=== PATIENT | female | born 1985 | race Caucasian/White ===

== ENCOUNTER 2018-01-15 13:00 | Inpatient (IN) | payer BC, OTHER ==
[2018-01-15] VITALS (28 sets, daily range): BP systolic 95–155; BP diastolic 52–87
[~2018-01-15] VITALS: Ht 165.1 cm; Wt 96.4 kg
[~2018-01-15 13:00] MED LIST: DCS100C PO; DOCO200C4 PO; HYDR-3720 PO; Ibuprofen PO
[2018-01-15] MEDS ORDERED: D5 LR IV SOLUTION 1,000 ML IV SCH (14:12)
[2018-01-15] MEDS ORDERED: AMPICILLIN INJECTION 2,000 MG in NS (IVPB) 50 ML IV SCH (14:12)
[2018-01-15] MEDS ORDERED: LACTATED RINGERS 1,000 ML IV ONE ×2 (14:28→16:35)
[2018-01-15 14:58] LABS: BASOPHILS % (AUTO) 0 % (0-10); EOSINOPHILS # (AUTO) 0.1 10^3/uL (0.0-0.3); EOSINOPHILS % (AUTO) 1 % (0-10); HEMATOCRIT 40 % (35-52); LYMPHOCYTES # (AUTO) 1.1 X 10^3 (1.0-4.0); LYMPHOCYTES % (AUTO) 13 % (12-44); MEAN CORPUSCULAR HGB CONC 35 G/DL (32-36); MEAN CORPUSCULAR VOLUME 92 FL (80-99); MEAN PLATELET VOLUME 9.8 FL (7.4-10.4); MONOCYTES # (AUTO) 0.4 X 10^3 (0.0-1.0); MONOCYTES % (AUTO) 4 % (0-12); NEUTROPHILS # (AUTO) 7.3 X 10^3 (1.8-7.8); NEUTROPHILS % (AUTO) 83 % (42-75); PLATELET COUNT 223 10^3/uL (130-400); RED BLOOD COUNT 4.31 10^6/uL (4.35-5.85); RED CELL DISTRIBUTION WIDTH 14.2 % (10.0-14.5); WHITE BLOOD COUNT 8.9 10^3/uL (4.3-11.0)
[2018-01-15 15:01] LABS: MEAN CORPUSCULAR HEMOGLOBIN 32 PG (25-34)
[2018-01-15] MEDS ORDERED: SUFENTA 0.6MCG/ML BUPIVA 0.125 100 ML ONE (15:20)
[2018-01-15] MEDS ORDERED: LIDOCAINE PF 2% 5 ML (XYLOCAINE) VIAL ONE (16:11)
[2018-01-15] MEDS ORDERED: fentaNYL INJECTION 100 MCG/2 ML AMP ONE (16:11)
[2018-01-15] MEDS ORDERED: BUPIVACAINE 0.25% 30 ML (SENSORCAINE) VIAL ONE (16:11)
[2018-01-15] MEDS ORDERED: CATHETER FLUSH 10 ML SYR IV PRN (16:45)
[2018-01-15] MEDS ORDERED: ONDANSETRON 4 MG/2 ML (SDV) Z0FRAN IV PRN (16:45)
[2018-01-15] MEDS ORDERED: EPIDURAL (SUFENTA 0.6MCG/ML BUPIVA 0.125%) 100 ML BAG EPI SCH ×2 (16:45→17:15)
[2018-01-15] MEDS ORDERED: NALOXONE 0.4 MG/ML 1 ML (NARCAN) VIAL IV PRN (16:45)
[2018-01-15] MEDS ORDERED: diphenhydrAMINE 50 MG/ML INJ (BENADRYL) IV PRN (16:45)
[2018-01-15] MEDS ORDERED: PHENYLEPHRINE 100 MCG/ML 10 ML (ANESTHESIA) SYR ONE (16:46)
[2018-01-15] MEDS ORDERED: OXYTOCIN/NORMAL SALINE 500 ML IV SCH (17:28)
--- NOTE | 2018-01-15 17:28 | History & Physical ---
History and Physical Date Seen by Provider: Jan 15, 2018 Time Seen by Provider: 17:25 This patient is a 31-year-old white female who presented with complaint of contractions. She dilated about 4 cm on presentation. She is to do a sharp her due date 39+ weeks gestation. She's had no problems with this . GBS culture was positive at 35 weeks gestation. She was started on ampicillin when it was determined that she was in labor. Patient denies ruptured membranes or bleeding. Allergies sulfa Medications are vitamins Medical social and surgical histories are per the antepartum record HEENT exam is normal Neck supple no lymphadenopathy or thyromegaly Abdomen is gravid soft nontender nondistended Initial examination. No Homans sign. Pelvic exam is pending monitor shows normal heart rate pattern although she has had some decelerations in response to lower blood pressure after her epidural. That is been managed with vasopressors and fluid. Baby has responded appropriately and has remained stable and reassuring. Laboratory Tests 01/15/18 14:30 Assessment and plan term at 39+ weeks gestation in spontaneous labor. Plan is for expectant management would likely vaginal delivery this evening Allergies and Home Medications Allergies Coded Allergies: Sulfa (Sulfonamide Antibiotics) (Verified Allergy, Unknown, hives, 05/20/14 ) Home Medications Docosahexanoic Acid 200 Mg Capsule, 200 MG PO lizzette, (Reported) Docusate Sodium 100 Mg Capsule, 1 CAP PO BID Prescribed by: LEAH GATICA on 05/22/14 0750 Hydrocodone Bit/Acetaminophen 1 Each Tablet, 1-2 TAB PO Q3H PRN for PAIN Prescribed by: LEAH GATICA on 05/22/14 0750 [Ibuprofen] 800 MG TAB, 800 MG PO Q6H Prescribed by: LEAH GATICA on 05/22/14 0750 Patient Home Medication List Home Medication List Reviewed: Yes Clinical Quality Measures DVT/VTE Risk/Contraindication: Risk Factor Score Per Nursin RFS Level Per Nursing on Admit: 1=Low/No VTE PPX LEAH KUMAR MD Jan 15, 2018 5:28 pm
[2018-01-15] MEDS ORDERED: TETANUS,DIPTH,PERTUSS P/F (BOOSTRIX) 0.5 ML VIAL IM ONE (17:30)
[2018-01-15] MEDS ORDERED: MEASLES,MUMPS,RUBELLA 1 EA INJ SC ONE (17:30)
[2018-01-15] MEDS ORDERED: BENZOCAINE/MENTHOL (DERMOPLAST) 56 ML CAN TP PRN (17:30)
[2018-01-15] MEDS ORDERED: KETOROLAC 30 MG/ML VIAL IV SCH (17:30)
[2018-01-15] MEDS ORDERED: LIDOCAINE/EPI 2% 1:200,00 (XYLOCAINE) 10 ML VIAL ONE (18:11)
[2018-01-15] MEDS ORDERED: AMPICILLIN 1000 MG INJECTION (IV/IM) ONE (18:18)
[2018-01-15] MEDS: AMPICILLIN INJECTION 1,000 MG in NS (IVPB) 50 ML IV SCH ×2 (18:19→22:15)
[2018-01-15] MEDS ORDERED: CATHETER FLUSH 10 ML SYR IV SCH (22:00)
[2018-01-15] MEDS: DOCUSATE SODIUM 100 MG (COLACE) CAP PO SCH (22:21)
--- NOTE | 2018-01-16 01:25 | OPERATIVE REPORT ---
DATE OF SERVICE: 01/15/2018 DELIVERY NOTE The patient delivered by term spontaneous vaginal delivery a viable male with Apgars of 8 and 9 at 1 and 5 minutes respectively, weight of 8 pounds 4 ounces, time of 1829 and a cord blood gas that is pending. The infant delivered over midline episiotomy that was performed per the patient's request when she had pushed the baby down on the perineum and there was woefully inadequate space for the baby to deliver. The episiotomy was performed. The patient delivered with the next 2 pushes. The infant was bulb suctioned on delivery of the head and again on completion of delivery. The umbilical cord was doubly clamped, mother cut the cord, and the baby was passed to the owner [employer] in attendance for delivery, which was Dr. Joshi who had graciously attended the delivery secondary to the thick meconium that was noted on amniotomy. The had spontaneous cry, moved all extremities, had excellent tone and reflexes and was quickly pink. The infant was taken to the warmer. The placenta delivered spontaneously Padilla. It was a battledore placenta with a 3-vessel cord. The cervix, vagina, rectum and perineum were examined and found intact, except for the midline episiotomy, which was repaired with a single suture of 3-0 Vicryl Rapide in the usual manner without difficulty. The uterus contracted nicely in response to the ecbolic effect of Pitocin. Estimated blood loss was around 200 mL. The sponge and needle counts were correct on completion of delivery and repair. The patient tolerated the delivery and the repair well and remained in the LDR. The baby remained with the mom. Job ID: [id number] DocumentID: [id number] Dictated Date: 01/15/2018 18:49:47 Access Services Representative Date: 01/16/2018 01:25:02 Dictated By: LEAH KUMAR MD MTDD
[2018-01-16] MEDS ORDERED: IBUPROFEN 800 MG (MOTRIN) TAB PO ONE (02:26)
[2018-01-16 02:30] VITALS: BP 128/80
[2018-01-16 05:45] VITALS: BP 124/79
[2018-01-16] MEDS: oxyCODONE/APAP 5/325MG (PERCOCET 5) TABLET PO PRN ×2 (05:48→14:07)
--- NOTE | 2018-01-16 07:19 | Progress Note-Standard ---
Standard Progress Note Progress Notes/Assess & Plan Date Seen by Provider: Jan 16, 2018 Time Seen by Provider: 07:18 Progress/Assessment & Plan This patient is without complaint. She is ambulating, voiding, tolerating by mouth, has good pain control. Vital Signs Date Time Temp Pulse Resp B/P (MAP) Pulse Ox O2 Delivery O2 Flow Rate FiO2 01/16/18 05:45 97.6 77 18 124/79 (94) 98 Room Air 01/16/18 02:30 98.0 89 18 128/80 (96) 01/15/18 22:00 98.0 110 18 112/72 (85) 01/15/18 19:49 103 18 121/67 (85) Room Air 01/15/18 19:45 113 18 120/65 (83) Room Air 01/15/18 19:41 107 18 123/67 (85) Room Air 01/15/18 19:37 109 18 127/70 (89) Room Air 01/15/18 18:45 105 18 127/63 (84) Room Air 01/15/18 18:40 98.0 110 20 135/64 (87) Room Air 01/15/18 18:25 105 20 141/65 (90) Room Air 01/15/18 18:10 88 20 139/72 (94) 98 Room Air 01/15/18 17:55 110 20 130/80 (97) 96 Room Air 01/15/18 17:40 106 18 130/74 (92) 98 Room Air 01/15/18 17:27 97.6 89 18 117/70 (86) 100 Room Air 01/15/18 17:22 93 18 115/71 (86) 100 Room Air 01/15/18 17:15 98 18 99/54 (69) 100 Room Air 01/15/18 16:53 98 16 102/57 (72) 100 Room Air 01/15/18 16:50 78 16 103/60 (74) 100 Room Air 01/15/18 16:46 98 16 98/57 (71) 100 Room Air 01/15/18 16:42 99 18 97/54 (68) 99 Room Air 01/15/18 16:40 86 18 106/68 (81) 99 Room Air 01/15/18 16:38 127 18 100/58 (72) 99 Room Air 6/5/18 16:31 127 18 95/52 (66) 99 Room Air 01/15/18 16:28 109 18 138/85 (102) 99 Room Air 01/15/18 16:23 106 20 155/81 (105) 99 Room Air 01/15/18 16:17 114 20 143/81 (101) 98 Room Air 01/15/18 16:00 95 20 126/76 (93) Room Air 01/15/18 15:45 95 20 129/81 (97) Room Air 01/15/18 15:30 88 20 124/80 (95) Room Air 01/15/18 13:30 98.2 83 20 135/87 (103) Room Air I & O 01/16/18 07:00 Intake Total 560 ml Balance 560 ml Vital signs are stable. Patient is afebrile. Fundus is firm below the umbilicus and nontender. History of gynecologic problems. Homans sign. Assessment and plan post day number 1 status post spontaneous vaginal delivery doing well. Plan is for routine pelvis. Very likely discharge home tomorrow Final Diagnosis LEAH MUJICA MD Jan 16, 2018 7:19 am
[2018-01-16] MEDS ORDERED: OXYC-471 PO (07:21)
[2018-01-16] MEDS ORDERED: IBUP-1780 PO (07:21)
[2018-01-16] MEDS ORDERED: DOCU100C37 PO (07:21)
--- NOTE | 2018-01-16 07:22 | Discharge Instructions ---
Discharge Instructions Discharge Medications New, Converted or Re-Newed RX: RX on Chart Patient Instructions Patient Instructions: As directed Return to The Hospital For: As directed Activity & Diet Discharge Diet: No Restrictions Activity as Tolerated: No Orders-Post D/C & Referrals Follow Up Appt: Call to make follow up appt. for patient in 4 weeks. Activity Per routine post vaginal delivery instructions. Diet as tolerated Patient may shower or tub bathe as desired. LEAH KUMAR MD Jan 16, 2018 7:22 am
--- NOTE | 2018-01-16 07:43 | Anesthesia-Regional Post-Op ---
Regional Patient Condition Mental Status: Alert, Oriented x3 Circulation: Same as Pre-Op Headache: Absent Sensation: Full Recovery Motor Block: Absent Post Op Complications Complications None Follow Up Care/Instructions Patient Instructions None needed. Anesthesia/Patient Condition Patient is doing well, no complaints, stable vital signs, no apparent adverse anesthesia problems. No complications reported per nursing. RACHEL CABRERA CRNA Jan 16, 2018 07:43
[2018-01-16] MEDS: DOCUSATE SODIUM 100 MG (COLACE) CAP PO SCH ×2 (08:53→21:22)
[2018-01-16 09:25] VITALS: BP 126/79
[2018-01-16] MEDS: IBUPROFEN 800 MG (MOTRIN) TAB PO SCH ×2 (14:08→21:22)
[2018-01-16 16:25] VITALS: BP 118/80
[2018-01-16] MEDS ORDERED: IBUPROFEN 800 MG (MOTRIN) TAB PO SCH (17:30)
[2018-01-16 21:25] VITALS: BP 125/84
[2018-01-17] MEDS: IBUPROFEN 800 MG (MOTRIN) TAB PO SCH ×2 (03:45→08:22)
[2018-01-17 03:46] VITALS: BP 116/76
--- NOTE | 2018-01-17 08:01 | Progress Note-Standard ---
Standard Progress Note Progress Notes/Assess & Plan Date Seen by Provider: Jan 17, 2018 Time Seen by Provider: 08:01 Progress/Assessment & Plan This patient is without complaint. She is ambulating, voiding, tolerating by mouth, has good pain control. Vital Signs Date Time Temp Pulse Resp B/P (MAP) Pulse Ox O2 Delivery O2 Flow Rate FiO2 01/16/18 05:45 97.6 77 18 124/79 (94) 98 Room Air 01/16/18 02:30 98.0 89 18 128/80 (96) 01/15/18 22:00 98.0 110 18 112/72 (85) 01/15/18 19:49 103 18 121/67 (85) Room Air 01/15/18 19:45 113 18 120/65 (83) Room Air 01/15/18 19:41 107 18 123/67 (85) Room Air 01/15/18 19:37 109 18 127/70 (89) Room Air 01/15/18 18:45 105 18 127/63 (84) Room Air 01/15/18 18:40 98.0 110 20 135/64 (87) Room Air 01/15/18 18:25 105 20 141/65 (90) Room Air 01/15/18 18:10 88 20 139/72 (94) 98 Room Air 01/15/18 17:55 110 20 130/80 (97) 96 Room Air 01/15/18 17:40 106 18 130/74 (92) 98 Room Air 01/15/18 17:27 97.6 89 18 117/70 (86) 100 Room Air 01/15/18 17:22 93 18 115/71 (86) 100 Room Air 01/15/18 17:15 98 18 99/54 (69) 100 Room Air 01/15/18 16:53 98 16 102/57 (72) 100 Room Air 01/15/18 16:50 78 16 103/60 (74) 100 Room Air 01/15/18 16:46 98 16 98/57 (71) 100 Room Air 01/15/18 16:42 99 18 97/54 (68) 99 Room Air 01/15/18 16:40 86 18 106/68 (81) 99 Room Air 01/15/18 16:38 127 18 100/58 (72) 99 Room Air 6/5/18 16:31 127 18 95/52 (66) 99 Room Air 01/15/18 16:28 109 18 138/85 (102) 99 Room Air 01/15/18 16:23 106 20 155/81 (105) 99 Room Air 01/15/18 16:17 114 20 143/81 (101) 98 Room Air 01/15/18 16:00 95 20 126/76 (93) Room Air 01/15/18 15:45 95 20 129/81 (97) Room Air 01/15/18 15:30 88 20 124/80 (95) Room Air 01/15/18 13:30 98.2 83 20 135/87 (103) Room Air I & O 01/16/18 07:00 Intake Total 560 ml Balance 560 ml Vital signs are stable. Patient is afebrile. Fundus is firm below the umbilicus and nontender. History of gynecologic problems. Homans sign. Assessment and plan post day number 1 status post spontaneous vaginal delivery doing well. Plan is for routine pelvis. Very likely discharge home tomorrow January 17, 2018 Patient without complaint. She is ambulating, voiding, tolerating oral intake well has good pain control and is requesting discharge home. Vital Signs Date Time Temp Pulse Resp B/P (MAP) Pulse Ox O2 Delivery O2 Flow Rate FiO2 01/17/18 03:46 98.1 76 18 116/76 (89) 95 Room Air 01/16/18 21:25 98.7 85 18 125/84 (98) 98 Room Air 01/16/18 16:25 97.9 78 18 118/80 (93) Room Air 01/16/18 09:25 98.3 77 18 126/79 (95) 98 Room Air Vital signs are stable. Patient afebrile. Fundus is firm below the umbilicus and nontender. Extremities show no clubbing cyanosis. There is no Homans sign. Assessment and plan day number 2 doing well plan is to discharge home with follow-up in clinic Final Diagnosis LEAH MUJICA MD Jan 17, 2018 8:01 am
[2018-01-17 08:19] VITALS: BP 123/81
[2018-01-17] MEDS: DOCUSATE SODIUM 100 MG (COLACE) CAP PO SCH (08:22)
== END 2018-01-17 13:00 | disposition home or self-care (01) | DRG 775 ==
LOC: LDRP 13:00 → WSo 13:00 → LDRP 14:00
PROVIDERS: ADMIT Obstetrics & Gynecology; ATTEND Obstetrics & Gynecology
PROC: 10E0XZZ Delivery of Products of Conception, External Approach (ICD-10-PCS; principal; 2018-01-15)
PROC: 0W8NXZZ Division of Female Perineum, External Approach (ICD-10-PCS; 2018-01-15)
DX: O99.824 Streptococcus B carrier state complicating childbirth (principal); Z37.0 Single live birth; O43.193 Other malformation of placenta, third trimester; Z3A.39 39 weeks gestation of pregnancy
CPT/HCPCS: 36415; 85025; 86850; 86900; 86901; 88307; 99212

== ENCOUNTER → 2021-03-21 | Outpatient (CLI) | payer OTHER ==
[~2021-03-21] MED LIST changes: +DOCU100C37 PO; +IBUP-1780 PO; +OXYC1TAB11 PO
--- NOTE | 2021-03-21 12:02 | Diagnostic Imaging Report ---
INDICATION: Routine screening. COMPARISON: No prior mammograms are available for comparison. This is a baseline study. TECHNIQUE: 2D and 3D bilateral screening mammography was performed with CAD. FINDINGS: Both breasts are heterogeneously dense, limiting the sensitivity of mammography. There are numerous calcifications in both breasts limiting evaluation. There is a band of calcifications just lateral to the nipple on the CC view for which additional views should be performed. In addition, there is a circumscribed nodule in the left breast just lateral to the nipple line at mid depth. Additional views should be performed. A circumscribed nodule in the superior outer left breast is noted and has benign features. The right breast is without discrete mass. The axillae are unremarkable. IMPRESSION: Left breast calcifications and left breast nodule. Additional views are recommended for further evaluation. ACR BI-RADS Category 0: Incomplete. (Needs additional imaging evaluation). Result letter will be mailed to the patient. Note: At least 10% of breast cancer is not imaged by mammography. Dictated by: Dictated on workstation # [id number]
== END ==
LOC: RAD 11:30
PROVIDERS: ATTEND Obstetrics & Gynecology
DX: Z12.31 Encounter for screening mammogram for malignant neoplasm of breast (principal); N63.20 Unspecified lump in the left breast, unspecified quadrant; R92.1 Mammographic calcification found on diagnostic imaging of breast
CPT/HCPCS: 77063; 77067

== ENCOUNTER → 2021-04-04 | Outpatient (CLI) | payer OTHER ==
--- NOTE | 2021-04-04 14:49 | Diagnostic Imaging Report ---
Indication: Left breast calcifications. Patient also has a left breast nodule. Patient presents for additional views. Unilateral left 2-D and 3-D mammography was performed. This includes spot magnification CC and MLO views as well as conventional 90 degree lateral view. A spot compression CC view is also performed. There is a circumscribed nodule in the lower outer left breast approximately 3 to 4 cm from the nipple. This should be further evaluated with ultrasound. Numerous microcalcifications in the left breast are noted. Calcifications in the outer left breast in a somewhat bandlike linear configuration. There is some pleomorphism present. No discrete soft tissue mass is identified. IMPRESSION: BI-RADS Category 4 Circumscribed nodule in the lower outer left breast approximately 4 cm from the nipple. Further evaluation with ultrasound is recommended. Numerous indeterminate microcalcifications in the outer left breast. Tissue sampling is recommended. These would be amenable to stereotactic biopsy approach. ACR BI-RADS Category 4: Suspicious abnormality. Result letter will be mailed to the patient. Note: At least 10% of breast cancer is not imaged by mammography. Dictated by: Dictated on workstation # [id number]
--- NOTE | 2021-04-04 16:48 | Diagnostic Imaging Report ---
INDICATION: Left breast nodular density. COMPARISON: Correlation is made with the diagnostic mammogram from earlier this same day and a screening mammogram from 03/21/2021. FINDINGS: Sonographic interrogation of the lower outer left breast demonstrates a simple appearing cyst at the 4 o'clock location 4 cm from the nipple measuring 6 mm x 5 mm x 5 mm. This likely accounts for the mammographic density. There are several tiny adjacent cysts present as well. No solid mass is seen. There is no internal vascularity. IMPRESSION: 1. Simple cyst at the 4 o'clock location in the left breast 4 cm from the nipple, likely accounting for the mammographic density. 2. Left breast calcifications described on diagnostic mammogram report. Biopsy of calcifications is recommended. ACR BI-RADS Category 4: Suspicious abnormality. Dictated by: Dictated on workstation # [id number]
== END ==
LOC: RAD 13:24
PROVIDERS: ATTEND Obstetrics & Gynecology
DX: N60.02 Solitary cyst of left breast (principal)
CPT/HCPCS: 76642; 77065; G0279

== ENCOUNTER → 2021-04-29 | Outpatient (CLI) | payer OTHER ==
[~2021-04-29] VITALS: Ht 165.1 cm; Wt 79.5 kg
[~2021-04-29] MED LIST changes: +LIDOCAINE 1% INJ 20 ML 20 ML VIAL INJ ONE; +LIDOCAINE 1% INJ 20 ML 20 ML VIAL ONE
--- NOTE | 2021-04-29 12:37 | Diagnostic Imaging Report ---
INDICATION: Left breast calcifications. PROCEDURE: The patient presents for stereotactic biopsy. The patient was brought to the mammography suite, placed in the chair in a sitting upright position. The left breast was positioned craniocaudal. Tomographic imaging was performed to evaluate appropriate entry site. Superior left breast was then prepped and draped in the usual sterile fashion. A small amount of 1% lidocaine was utilized for local anesthesia. An 8 gauge stereotactic needle was advanced from a craniocaudal approach and placed per tomographic coordinates. Four core biopsies were obtained utilizing the vacuum-assisted device. Calcifications are identified in samples labeled 1, 2 and 4, most numerous in sample #4. A marker clip was then deployed. Needle was removed and hemostasis was obtained. Follow-up 2-D CC and ML mammography was performed demonstrating a marker clip in the outer and lower aspect of the left breast. All images were viewed on dedicated workstation. IMPRESSION: Successful left breast stereotactic tomographic biopsy obtaining outer left breast microcalcifications. Pathology results are currently pending. Dictated by: Dictated on workstation # [id number]
== END ==
LOC: RAD 09:46
PROVIDERS: ATTEND Surgery
DX: R92.0 Mammographic microcalcification found on diagnostic imaging of breast (principal)
CPT/HCPCS: 19081; A4648